=== PATIENT | male | born 1975 | race Caucasian/White ===

== ENCOUNTER 2017-09-20 20:30 | Emergency (ER) | payer BC ==
[2017-09-20] MEDS ORDERED: methylPREDNISolone SOD SUCC PF 125 MG/2 ML VIAL. IV (21:00)
[2017-09-20] MEDS ORDERED: IPRATRPIUM/ALBUTEROL 0.5/2.5MG 3 ML NEBU. (21:01)
[2017-09-20] MEDS: IPRATRPIUM/ALBUTEROL 0.5/2.5MG 3 ML NEBU. NEB (21:05)
[2017-09-20] MEDS: cefTRIAXone IM 1 GM VIAL IM (21:40)
[2017-09-20] MEDS: methylPREDNISolone SOD SUCC PF 125 MG/2 ML VIAL. IM (21:40)
== END 2017-09-20 21:58 | disposition home or self-care (01) ==
LOC: ER 20:30
DX: J20.9 Acute bronchitis, unspecified (principal); J45.909 Unspecified asthma, uncomplicated
CPT/HCPCS: 71046; 94640; 96372; 99284; J0696; J2930; J7620